=== PATIENT | male | born 1970 | race Two or more races ===

== ENCOUNTER 2017-06-09 00:14 | Emergency (ER) | payer OTHER ==
[~2017-06-09] VITALS: Ht 177.8 cm; Wt 86.2 kg
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
--- NOTE | 2017-06-09 00:23 | NUR ---
DR. SRTEETER AT BEDSIDE
--- NOTE | 2017-06-09 00:25 | NUR ---
ABRASION NOTED ON POSTERIOR HEAD. NO ACTIVE BLEEDING NOTED.
[2017-06-09] MEDS ORDERED: HYDROMORPHONE 1 MG/1 ML DISP.SYRIN IV ONE (00:30)
[2017-06-09] MEDS ORDERED: TDAP [DIPH/PERTUSSIS/TET] 0.5 ML VIAL IM ONE ×2 (00:30→00:32)
--- NOTE | 2017-06-09 00:33 | NUR ---
PT TO RADIOLOGY FOR CT HEAD
--- NOTE | 2017-06-09 00:39 | NUR ---
PT RETURNED FROM CT.
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
--- NOTE | 2017-06-09 00:48 | NUR ---
Patient discharged with [employer] under custody in stable condition. Written and verbal after care instructions given. Patient verbalizes understanding of instruction. pt ambulatory with steady gait.
[2017-06-09 00:50] VITALS: BP 135/99
== END 2017-06-09 00:51 ==
LOC: ER 00:16
DX: S09.90XA Unspecified injury of head, initial encounter (principal); S00.01XA Abrasion of scalp, initial encounter; F10.129 Alcohol abuse with intoxication, unspecified; R79.89 Other specified abnormal findings of blood chemistry; R51 Headache; V29.88XA Motorcycle rider (driver) (passenger) injured in other specified transport accidents, initial encounter; Y93.89 Activity, other specified; Y92.89 Other specified places as the place of occurrence of the external cause; Y99.9 Unspecified external cause status
CPT/HCPCS: 70450; 82962; 90715; 99284; A4606; Z7610